=== PATIENT | male | born 1965 | race Caucasian/White ===

== ENCOUNTER → 2018-12-25 | Outpatient (CLI) | payer BC, OTHER | END | disposition home or self-care (01) | LOC: CFH 15:44 | PROVIDERS: ATTEND Internal Medicine Cardiovascular Disease | DX: I25.10 Atherosclerotic heart disease of native coronary artery without angina pectoris (principal); R03.0 Elevated blood-pressure reading, without diagnosis of hypertension; Z82.49 Family history of ischemic heart disease and other diseases of the circulatory system | CPT/HCPCS: 75571 ==

== ENCOUNTER 2019-03-14 08:49 | Outpatient (CLI) | payer BC | END 2019-03-14 23:59 | disposition home or self-care (01) | LOC: CFH 08:49 | PROVIDERS: ATTEND Internal Medicine Cardiovascular Disease | DX: I48.0 Paroxysmal atrial fibrillation (principal); R93.1 Abnormal findings on diagnostic imaging of heart and coronary circulation | CPT/HCPCS: 78452; 93017; A9502 ==

== ENCOUNTER → 2021-03-03 | Outpatient (CLI) | payer BC | END | disposition home or self-care (01) | LOC: CFH 15:36 | PROVIDERS: ATTEND Family Medicine | DX: R10.9 Unspecified abdominal pain (principal) | CPT/HCPCS: 76700 ==

== ENCOUNTER 2021-04-12 13:01 | Outpatient (CLI) | payer BC ==
[2021-04-12] MEDS ORDERED: SINCALIDE (KINEVAC) 5 MCG ONE (14:16)
== END 2021-04-12 23:59 | disposition home or self-care (01) ==
LOC: RAD 13:01
PROVIDERS: ATTEND Family Medicine
DX: R10.9 Unspecified abdominal pain (principal)
CPT/HCPCS: 78227; A9537; J2805

== ENCOUNTER 2021-05-13 05:58 | Day surgery (SDC) | payer OTHER ==
[~2021-05-13] VITALS: Ht 190.5 cm; Wt 105.0 kg
[2021-05-13 06:12] VITALS: BP 130/87
== END 2021-05-13 11:30 | disposition home or self-care (01) ==
LOC: OUT 05:58
PROVIDERS: ATTEND Surgery
DX: K81.1 Chronic cholecystitis (principal); K21.9 Gastro-esophageal reflux disease without esophagitis; Z20.822 Contact with and (suspected) exposure to COVID-19
CPT/HCPCS: 47562; 88304; J0171; J2250; J3010; J7120; S2900; U0003; U0005